=== PATIENT | female | born 1980 | race Two or more races ===

== ENCOUNTER 2017-09-07 16:15 | Emergency (ER) | payer OTHER ==
[2017-09-07 16:33] VITALS: BP 101/60
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
[2017-09-07] MEDS ORDERED: Ibuprofen TAB* 600 MG PO ONE (16:48)
--- NOTE | 2017-09-07 17:24 | RAD ---
Indication: Neck pain. CT of the cervical spine was obtained in the axial plane. Sagittal and coronal reconstructed images were obtained. The skull base demonstrates no fracture. Mastoid air cells are well aerated. Degenerative changes of the atlantoaxial joint is noted. The vertebral bodies appear normal in height. No evidence of fracture is noted. Disc spaces all well-preserved. The lung apices are grossly unremarkable. No prevertebral soft tissue swelling is noted. No evidence of facet malalignment is present. IMPRESSION: No fracture of the cervical spine is noted. No evidence of facet malalignment is noted.
--- NOTE | 2017-09-07 17:39 | RAD ---
Indication: Neck pain. 5 views of lumbar spine demonstrates dextroscoliosis centered at L2-L3. Disc spaces all well-preserved. Bowel gas pattern is unremarkable. IMPRESSION: Mild dextroscoliosis centered at L2-L3.
--- NOTE | 2017-09-07 17:39 | RAD ---
Indication: Back pain. 2 views of the thoracic spine demonstrate vertebral bodies to be normal in height. Disc spaces all well-preserved. Pedicles appear intact. IMPRESSION: Unremarkable thoracic spine.
== END 2017-09-07 18:00 | disposition home or self-care (01) ==
LOC: UCEAST 16:15
DX: S16.1XXA Strain of muscle, fascia and tendon at neck level, initial encounter (principal); S29.012A Strain of muscle and tendon of back wall of thorax, initial encounter; S39.012A Strain of muscle, fascia and tendon of lower back, initial encounter; V43.52XA Car driver injured in collision with other type car in traffic accident, initial encounter; Y93.89 Activity, other specified; Y92.410 Unspecified street and highway as the place of occurrence of the external cause; M41.9 Scoliosis, unspecified
CPT/HCPCS: 72070; 72110; 72125; 99211; A9270-GY; G0463